=== PATIENT | female | born 1995 | race Caucasian/White ===

== ENCOUNTER 2018-03-15 02:56 | Emergency (ER) | payer BC, OTHER ==
[~2018-03-15] VITALS: Ht 157.5 cm; Wt 48.0 kg
[~2018-03-15 02:56] MED LIST: LEXA10TA PO; PRAM1AER PR
[2018-03-15 03:13] VITALS: BP 133/85; PULSE 115; RESP 22; TEMP 98.2; O2SAT 97
[2018-03-15 04:06] LABS: ALBUMIN 4.2 GM/DL (3.4-5.0); ALT (GPT) 42 U/L (10-53); AST (GOT) 26 U/L (15-37); BICARBONATE 22.6 MEQ/L (21.0-32.0); BLOOD UREA NITROGEN 12 MG/DL (7-18); CALCIUM 8.7 MG/DL (8.5-10.1); CHLORIDE 111 MEQ/L (98-107); CREATININE 0.77 MG/DL (0.50-1.00); GLOMERULAR FILTRATION RATE 93 ML/MIN (>89); GLUCOSE,RANDOM 85 MG/DL (74-106); SODIUM (NA) 144 MEQ/L (136-145)
[2018-03-15 04:08] LABS: ALKALINE PHOSPHATASE 62 U/L (45-117); TOTAL BILIRUBIN ADULT 0.2 MG/DL (0.2-1.0); TOTAL PROTEIN 7.9 GM/DL (6.4-8.2)
[2018-03-15 04:15] LABS: AUTOMATED NEUTROPHIL # 6.6 TH/MM3 (1.8-7.7); BASOPHIL % 0.6 % (0.0-2.0); EOSINOPHIL # 0.1 TH/MM3 (0-0.4); EOSINOPHIL % 0.6 % (0.0-4.0); HEMATOCRIT 49.2 % (35.0-46.0); HEMOGLOBIN 16.7 GM/DL (11.6-15.3); LYMPH % 15.2 % (9.0-44.0); LYMPHOCYTE # 1.3 TH/MM3 (1.0-4.8); MEAN CELL VOLUME 97.7 FL (80.0-100.0); MEAN CORPUSCULAR HEMOGLOBIN 33.2 PG (27.0-34.0); MEAN CORPUSCULAR HGB CONC 33.9 % (32.0-36.0); MEAN PLATELET VOLUME 8.5 FL (7.0-11.0); MONOCYTE # 0.5 TH/MM3 (0-0.9); NEUT % 77.6 % (16.0-70.0); PLATELET COUNT 244 TH/MM3 (150-450); RED BLOOD COUNT 5.03 MIL/MM3 (4.00-5.30); RED CELL DISTRIBUTION WIDTH 12.8 % (11.6-17.2); WHITE BLOOD COUNT 8.5 TH/MM3 (4.0-11.0)
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
[2018-03-15] MEDS ORDERED: IOHEXOL 350 MG/ML 10 ML VIAL (for RAD DIAG) IVCONTRAST ONE (04:59)
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
[2018-03-15 05:04] VITALS: BP 101/60; PULSE 96; RESP 17; O2SAT 97
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
[2018-03-15] MEDS ORDERED: KETOROLAC TROMETHAMINE 30 MG/ML (IVP) VIAL IV PUSH ONE (05:30)
[2018-03-15] MEDS ORDERED: TRAM50TA PO (05:40)
[2018-03-15] MEDS ORDERED: DIAZ2 PO (05:40)
[2018-03-15] MEDS ORDERED: IBUP-232 PO (05:40)
[2018-03-15] MEDS ORDERED: CYCL5TAB PO (05:43)
== END 2018-03-15 06:03 | disposition home or self-care (01) ==
LOC: NEPE 02:56
DX: R07.81 Pleurodynia (principal); M79.642 Pain in left hand; M25.562 Pain in left knee; M25.561 Pain in right knee
CPT/HCPCS: 70450; 71260; 73120; 73564; 74177; 80053; 84703; 85025; 96374; 99285; J1885; Q9967